=== PATIENT | female | born 1990 | race American Indian/Alaskan Native ===

== ENCOUNTER 2021-06-11 21:38 | Emergency (ER) | payer OTHER, BC ==
[2021-06-11] MEDS ORDERED: oxyCODONE /ACETAMINOPHEN 5-325MG TAB PO ONE (21:58)
[2021-06-11] MEDS ORDERED: ONDANSETRON 4 MG ODT TAB PO ONE (22:02)
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
[2021-06-11 23:14] LABS: Basophils % (Auto) 0.2 % (0.0-1.8); Eosinophils % (Auto) 0.5 % (0.0-4.3); Lymphocytes # (Auto) 1.6 K/mm3 (1.2-5.4); Lymphocytes % (Auto) 25.6 % (13.4-35.0); Mean Corpuscular HGB Conc 30 % (30-34); Mean Corpuscular Volume 78 fl (79-97); Monocytes # (Auto) 0.5 K/mm3 (0.0-0.8); Monocytes % (Auto) 8.6 % (0.0-7.3); Platelet Count 403 K/mm3 (140-440); Red Blood Count 4.25 M/mm3 (3.65-5.03); Red Cell Distribution Width 15.4 % (13.2-15.2)
[2021-06-11 23:31] LABS: Hematocrit 33.2 % (30.3-42.9); Hemoglobin 9.9 gm/dl (10.1-14.3)
[2021-06-11 23:50] LABS: Alanine Aminotransferase 21 units/L (7-56); Blood Urea Nitrogen 6 mg/dL (7-17); Hemolysis Index 6
[2021-06-11 23:51] LABS: BUN/Creatinine Ratio 9
[2021-06-12 00:08] VITALS: BP 125/80
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
== END 2021-06-12 01:30 | disposition home or self-care (01) ==
LOC: ED 21:38
DX: S16.1XXA Strain of muscle, fascia and tendon at neck level, initial encounter (principal); R07.89 Other chest pain; R10.9 Unspecified abdominal pain; J45.909 Unspecified asthma, uncomplicated; V49.49XA Driver injured in collision with other motor vehicles in traffic accident, initial encounter; Y93.89 Activity, other specified; Y92.89 Other specified places as the place of occurrence of the external cause; Y99.8 Other external cause status
CPT/HCPCS: 36415; 71045; 71260; 74177; 80053; 85025; 99284; Q9967; J3490; Q0162